=== PATIENT | female | born 1995 | race Two or more races ===

== ENCOUNTER 2024-08-15 23:16 | Inpatient (IN) | payer BC ==
[2024-08-15] MEDS ORDERED: Sodium Chloride 0.9% 20 ML SDV IV PRN (23:54)
[2024-08-15] MEDS ORDERED: Sodium Chloride 0.9% 2.5 ML Syringe FLUSH PRN (23:54)
[2024-08-15] MEDS ORDERED: Water For Irrigation,Sterile 1,000 ML Container IRR PRN (23:54)
[2024-08-15] MEDS ORDERED: Sodium Chloride 0.9% 10 ML Syringe FLUSH PRN (23:54)
[2024-08-15] MEDS ORDERED: Ondansetron 4 MG/2 ML SDV IVPUSH PRN (23:54)
[2024-08-15] MEDS ORDERED: Lidocaine 1% 50 ML MDV INJECT PRN (23:54)
[2024-08-16 00:42] LABS: HEMATOCRIT 35.8 % (37.0-47.0); HEMOGLOBIN 12.8 g/dL (12.0-16.0); MEAN CORPUSCULAR HGB CONC 35.8 g/dL (32.0-36.0); MEAN CORPUSCULAR VOLUME 89.5 fL (83.0-99.0); MEAN PLATELET VOLUME 10.4 fL (9.4-12.3); PLATELET COUNT,PLT 180 K/uL (150-400); WHITE BLOOD CELL COUNT,WBC 10.01 K/uL (3.9-11.3)
[2024-08-16] MEDS: Butorphanol 1 MG/ML SDV IVPUSH PRN (01:28)
[2024-08-16 02:46] LABS: A/G RATIO 0.8 (0.9-1.6); ALBUMIN 2.9 g/dL (3.4-5.0); BILIRUBIN TOTAL 0.4 mg/dL (0.2-1.0); CALCIUM 8.9 mg/dL (8.5-10.1); CARBON DIOXIDE,CO2 19.9 mmol/L (21.0-32.0); CREATININE 0.6 mg/dL (0.6-1.0); EST CRCL DRUG DOSING (CG) 131.85 mL/min; POTASSIUM,K 3.9 mmol/L (3.5-5.1); PROTEIN TOTAL,TP 6.4 g/dL (6.4-8.2)
[2024-08-16] MEDS: Lactated Ringers 1,000 ML IV SCH (03:50)
[2024-08-16] MEDS: Ropivacaine HCl/PF 400 MG in Premix Bag 1 BAG EPIDUR SCH (04:41)
[2024-08-16] MEDS ORDERED: Phenylephrine HCl In 0.9% NaCl 1 MG/10 ML Syringe ONE (04:42)
[2024-08-16] MEDS ORDERED: Ropivacaine HCl/PF 200 ML ONE (04:42)
[2024-08-16] MEDS ORDERED: dexmedeTOMIDine HCl 200 MCG/2 ML SDV ONE (04:42)
[2024-08-16] MEDS ORDERED: ePHEDrine 50 MG/ML SDV IVPUSH PRN (04:49)
[2024-08-16] MEDS ORDERED: Phenylephrine HCl In 0.9% NaCl 1 MG/10 ML Syringe IVPUSH PRN (04:49)
[2024-08-16] MEDS ORDERED: dexmedeTOMIDine HCl 200 MCG/2 ML SDV EPIDUR SCH (05:00)
[2024-08-16] MEDS: Oxytocin/0.9 % Sodium Chloride 30 UNIT/500 ML BAG IV SCH ×2 (07:15→13:52)
[2024-08-16 07:39] LABS: CREATININE,URINE RAND 135.7 mg/dL; PROTEIN CREATININE RATIO,URINE 0.2; PROTEIN,URINE RANDOM 21.7 mg/dL (<11.9)
[2024-08-16] MEDS: Tranexamic Acid in NACL,ISO-OS 1,000 MG in Premix Bag 1 BAG IV ONE (13:59)
[2024-08-16] MEDS: Methylergonovine 0.2 MG/1 ML Amp IM PRN (14:01)
[2024-08-16] MEDS: Carboprost Tromethamine 250 MCG/1 mL Vial IM PRN (14:06)
[2024-08-16] MEDS ORDERED: Atropine 1 MG/ML SDV ONE (14:08)
[2024-08-16] MEDS ORDERED: Ketorolac 30 MG/ML SDV ONE (14:08)
[2024-08-16] MEDS: Misoprostol 200 MCG Tab PO PRN (14:15)
[2024-08-16] MEDS: Ondansetron 4 MG/2 ML SDV ONE (14:23)
[2024-08-16] MEDS: Loperamide 2 MG Cap ONE (14:23)
[2024-08-16] MEDS ORDERED: Docusate Sodium 100 MG Cap PO PRN (15:03)
[2024-08-16] MEDS ORDERED: Famotidine 20 MG Tab PO PRN (15:10)
[2024-08-16] MEDS ORDERED: Aluminum Hydroxide/Magnesium Hydroxide/Simethicone Susp 30 ML Cup PO PRN (15:10)
[2024-08-16 15:23] LABS: PH,UMBILICAL ARTERIAL 7.23 (7.18-7.38); PH,UMBILICAL VENOUS 7.33 (7.25-7.45)
[2024-08-16 15:35] LABS: BASOPHILS ABSOLUTE AUTO 0.02 K/uL (0.00-0.20); BASOPHILS PERCENT AUTO 0.1 % (0.0-1.0); EOSINOPHILS ABSOLUTE AUTO 0.02 K/uL (0.00-0.45); EOSINOPHILS PERCENT AUTO 0.1 % (0.0-6.0); HEMATOCRIT 36.8 % (37.0-47.0); HEMOGLOBIN 12.6 g/dL (12.0-16.0); IMMATURE GRAN ABSOLUTE AUTO 0.08 K/uL (0.00-0.05); IMMATURE GRAN PERCENT AUTO 0.5 % (0.0-0.4); LYMPHOCYTES ABSOLUTE AUTO 0.81 K/uL (1.00-4.80); LYMPHOCYTES PERCENT AUTO 4.9 % (24.0-44.0); MEAN CORPUSCULAR HEMOGLOBIN 31.7 pg (28.0-32.0); MEAN CORPUSCULAR HGB CONC 34.2 g/dL (32.0-36.0); MEAN CORPUSCULAR VOLUME 92.5 fL (83.0-99.0); MEAN PLATELET VOLUME 10.3 fL (9.4-12.3); MONOCYTES ABSOLUTE AUTO 0.84 K/uL (0.00-0.80); NEUTROPHILS ABSOLUTE AUTO 14.89 K/uL (1.80-7.70); NEUTROPHILS PERCENT AUTO 89.4 % (41.0-71.0); PLATELET COUNT,PLT 180 K/uL (150-400); RED BLOOD CELL COUNT 3.98 M/uL (4.10-5.30); WHITE BLOOD CELL COUNT,WBC 16.66 K/uL (3.9-11.3)
[2024-08-16 16:01] LABS: A/G RATIO 0.8 (0.9-1.6); ALBUMIN 2.7 g/dL (3.4-5.0); BILIRUBIN TOTAL 0.7 mg/dL (0.2-1.0); CALCIUM 8.5 mg/dL (8.5-10.1); CARBON DIOXIDE,CO2 24.6 mmol/L (21.0-32.0); CREATININE 0.7 mg/dL (0.6-1.0); EST CRCL DRUG DOSING (CG) 113.01 mL/min; POTASSIUM,K 4.3 mmol/L (3.5-5.1); PROTEIN TOTAL,TP 6.3 g/dL (6.4-8.2)
[2024-08-16] MEDS: Lanolin 100% Cream 7 GM Tube TOP PRN (17:23)
[2024-08-16] MEDS: Benzocaine/Menthol 20%-0.5% Spray 78 GM Cannister TOP PRN (17:23)
[2024-08-16] MEDS: Acetaminophen 500 MG Tab PO PRN (17:23)
[2024-08-16] MEDS: Witch Hazel Medicated Pads 40/Jar TOP PRN (17:23)
[2024-08-16 17:40] LABS: D-DIMER QUANTITATIVE 3.94 mg/L FEU (0.00-0.50); INR 0.97 (0.86-1.11); PTT,PARTIAL THROMBOPLSTIN TIME 29.1 SEC (23.9-30.7)
[2024-08-17 06:06] LABS: BASOPHILS ABSOLUTE AUTO 0.02 K/uL (0.00-0.20); BASOPHILS PERCENT AUTO 0.2 % (0.0-1.0); EOSINOPHILS ABSOLUTE AUTO 0.08 K/uL (0.00-0.45); EOSINOPHILS PERCENT AUTO 0.8 % (0.0-6.0); HEMATOCRIT 26.4 % (37.0-47.0); HEMOGLOBIN 9.2 g/dL (12.0-16.0); IMMATURE GRAN ABSOLUTE AUTO 0.05 K/uL (0.00-0.05); IMMATURE GRAN PERCENT AUTO 0.5 % (0.0-0.4); LYMPHOCYTES ABSOLUTE AUTO 1.23 K/uL (1.00-4.80); MEAN CORPUSCULAR HEMOGLOBIN 32.1 pg (28.0-32.0); MEAN CORPUSCULAR HGB CONC 34.8 g/dL (32.0-36.0); MEAN PLATELET VOLUME 10.4 fL (9.4-12.3); MONOCYTES ABSOLUTE AUTO 0.73 K/uL (0.00-0.80); MONOCYTES PERCENT AUTO 7.1 % (0.0-8.0); NEUTROPHILS ABSOLUTE AUTO 8.11 K/uL (1.80-7.70); NEUTROPHILS PERCENT AUTO 79.4 % (41.0-71.0); PLATELET COUNT,PLT 150 K/uL (150-400); RED BLOOD CELL COUNT 2.87 M/uL (4.10-5.30); WHITE BLOOD CELL COUNT,WBC 10.22 K/uL (3.9-11.3)
[2024-08-17] MEDS: Ibuprofen 800 MG Tab PO PRN (14:56)
== END 2024-08-17 16:40 | disposition home or self-care (01) | DRG 560 ==
LOC: MW.OB 23:16 → MW.OBCHECK 23:16 → MW.OB 08-16 08:30 → OBSVTOIN 08-16 14:50 → MW.OB 08-16 19:20
PROVIDERS: ADMIT Obstetrics & Gynecology; ATTEND Obstetrics & Gynecology
PROC: 10E0XZZ Delivery of Products of Conception, External Approach (ICD-10-PCS; principal; 2024-08-16)
PROC: 3E0R3BZ Introduction of Anesthetic Agent into Spinal Canal, Percutaneous Approach (ICD-10-PCS; 2024-08-16)
PROC: 0KQM0ZZ Repair Perineum Muscle, Open Approach (ICD-10-PCS; 2024-08-16)
DX: O48.0 Post-term pregnancy (principal); Z3A.41 41 weeks gestation of pregnancy; Z37.0 Single live birth; Z79.899 Other long term (current) drug therapy; O70.1 Second degree perineal laceration during delivery; O72.1 Other immediate postpartum hemorrhage; O90.81 Anemia of the puerperium
CPT/HCPCS: 01967; 36415; 51702; 59025; 59409; 76815; 76815-26; 80053; 82570; 82803; 84156; 85025; 85027; 85379; 85384; 85610; 85730; 86592; A9270-GY; J0461; J0595; J1885; J2210; J2371; J2405; J2590; J2795; J3490; J7120

== ENCOUNTER 2024-12-16 17:40 | Emergency (ER) | payer BC ==
[2024-12-16 18:29] LABS: GLUCOSE,URINE NEGATIVE (NEGATIVE); OCCULT BLOOD,URINE NEGATIVE (NEGATIVE)
[2024-12-16 18:32] LABS: APPEARANCE,URINE HAZY
[2024-12-16] MEDS ORDERED: Sodium Chloride 0.9% 2.5 ML Syringe FLUSH PRN (18:47)
[2024-12-16] MEDS ORDERED: Sodium Chloride 0.9% 10 ML Syringe FLUSH PRN (18:47)
[2024-12-16 19:17] LABS: BASOPHILS ABSOLUTE AUTO 0.03 K/uL (0.00-0.20); BASOPHILS PERCENT AUTO 0.2 % (0.0-1.0); EOSINOPHILS ABSOLUTE AUTO 0.22 K/uL (0.00-0.45); EOSINOPHILS PERCENT AUTO 1.6 % (0.0-6.0); IMMATURE GRAN ABSOLUTE AUTO 0.03 K/uL (0.00-0.05); IMMATURE GRAN PERCENT AUTO 0.2 % (0.0-0.4); LYMPHOCYTES ABSOLUTE AUTO 1.03 K/uL (1.00-4.80); LYMPHOCYTES PERCENT AUTO 7.5 % (24.0-44.0); MEAN PLATELET VOLUME 9.7 fL (9.4-12.3); MONOCYTES ABSOLUTE AUTO 0.86 K/uL (0.00-0.80); MONOCYTES PERCENT AUTO 6.3 % (0.0-8.0); NEUTROPHILS ABSOLUTE AUTO 11.54 K/uL (1.80-7.70); NEUTROPHILS PERCENT AUTO 84.2 % (41.0-71.0); NRBC ABSOLUTE 0.00 K/uL (0.00-0.02); NRBC PERCENT 0.0 /100WBC (0.0-0.2); PLATELET COUNT,PLT 307 K/uL (150-400); RED BLOOD CELL COUNT 4.28 M/uL (4.10-5.30); WHITE BLOOD CELL COUNT,WBC 13.71 K/uL (3.9-11.3)
[2024-12-16] MEDS: cefTRIAXone 1 GM in Water For Injection, Sterile 10 ML IVPUSH ONE (19:37)
[2024-12-16 19:41] LABS: A/G RATIO 0.8 (0.9-1.6); ALANINE AMINOTRANSFERASE,ALT 98.0 IU/L (14-63); ASPARTATE AMNIOTRANSFERASE,AST 48.0 IU/L (15-37); BILIRUBIN TOTAL 0.4 mg/dL (0.2-1.0); BLOOD UREA NITROGEN,BUN 14.0 mg/dL (7.0-18.0); CARBON DIOXIDE,CO2 22.6 mmol/L (21.0-32.0); CHLORIDE,CL 102.0 mmol/L (98-107); CREATININE 0.9 mg/dL (0.6-1.0); EST CRCL DRUG DOSING (CG) 81.08 mL/min; GLUCOSE RANDOM 96.0 mg/dL (74-106); POTASSIUM,K 4.2 mmol/L (3.5-5.1); PROTEIN TOTAL,TP 8.4 g/dL (6.4-8.2); SODIUM,NA 140.0 mmol/L (136-145)
[2024-12-16 19:42] LABS: ESTIMATED GFR 90.0 mL/min (>60)
[2024-12-16 19:44] LABS: LACTIC ACID 0.7 mmol/L (0.4-2.0)
[2024-12-16] MEDS: VANCOmycin 1.75 GM/350 ML 1.75 GM in Premix Bag 1 BAG IV ONE (19:51)
[2024-12-17] MEDS: Lidocaine 1% with EPINEPHrine 1:100,000 10 ML MDV INJECT ONE (01:23)
[2024-12-17] MEDS: Iopamidol 755 MG/ML 500 ML Multipack Bottle IVPUSH STA (02:11)
== END 2024-12-17 02:50 | disposition home or self-care (01) ==
LOC: MW.ED 17:40
DX: N61.1 Abscess of the breast and nipple (principal); Z79.899 Other long term (current) drug therapy
CPT/HCPCS: 10160; 36415; 71260; 76641; 80053; 81003; 81025; 83605; 85025; 87040; 87070; 87075; 87205; 87426; 87651; 96361; 96365; 96366; 96375; 99284; A9270; J0696; J2004; J3375; J7030; Q9967; 87077; 87186